=== PATIENT | male | born 1970 | race Hispanic/Latino ===

== ENCOUNTER 2025-05-19 15:00 | Inpatient (IN) | payer BC ==
[~2025-05-19] VITALS: Ht 182.9 cm; Wt 164.2 kg
[2025-05-19 16:21] LABS: IMMATURE GRANULOCYTE ABSOLUTE 0.15 K/uL (0-1); NUCLEATED RED BLOOD CELLS 0.0 % (0.0-0.19); PLATELET COUNT (AUTO) 290 K/uL (130-400); RED BLOOD CELL COUNT(AUTO) 3.43 MIL/uL (4.50-6.20); RED CELL DISTRIBUTION WIDTH 16.1 % (11.0-15.5); WHITE BLOOD COUNT (AUTO) 13.7 K/uL (4.8-10.8)
[2025-05-19 16:32] LABS: INR 0.99 (0.85-1.15)
--- NOTE | 2025-05-19 16:33 | ERN ---
General Chief Complaint: Hematemesis/Vomiting Blood Stated Complaint: VOMITING BLOOD Time Seen by MD: 15:16 Source: patient History of Present Illness Initial Comments This patient is a 54-year-old gentleman who presented with complaint of bloody vomitus. Patient stated that he had 1 episode of vomiting yesterday while he was at work and he noticed it was dark. Today, while sleeping, he started coughing which was followed by bloody vomiting. He only had 1 episode today. He also noticed dark stools since past 2 days. As per patient, he has no significant history of alcohol. Complains of pain in right upper quadrant. Also states that he has been having chronic cough without sputum for the past year. He also has NABIL history. Timing/Duration: 24 hours Associated Symptoms: nausea/vomiting Allergies: Coded Allergies: No Known Drug Allergies (Unverified Allergy, Unknown, 05/19/25) Past Medical History Past Medical History: Hypertension Past Surgical History: Other Surgical History Other: CRANIAL SURGERY Constitutional: (+) weakness Respiratory: (+) cough Gastrointestinal/Abdominal: (+) nausea, (+) vomiting, (+) abdominal pain (Right upper quadrant), (+) dark stool/melena Genitourinary: (-) penile discharge, (-) dysuria, (-) frequency, (-) hematuria, (-) pain, (-) other documentation Musculoskeletal: (-) Neck pain, (-) back pain, (-) Flank Pain, (-) joint pain, (-) joint swelling, (-) muscle pain, (-) muscle stiffness, (-) gout, (-) other documentation Skin: (-) laceration, (-) contusion, (-) abrasion, (-) abscess, (-) rash, (-) change in color, (-) change in hair, (-) change in nails, (-) diaphoresis, (-) dryness, (-) other documentation Neuro: (-) altered mental status, (-) headache, (-) syncope, (-) paralysis, (-) numbness, (-) seizure, (-) pre-existing deficit, (-) tremors, (-) weakness, (-) dizziness, (-) slurred speech, (-) vertigo, (-) other documentation Hematologic/Lymphatic: (-) anemia, (-) blood clots, (-) easy bleeding, (-) easy bruising, (-) swollen glands, (-) other documentation Physical Exam General Appearance: (+) no apparent distress, (+) obese Orientation: (+) alert, (+) oriented x 3 Ear, Nose, Throat: (+) hearing grossly normal, (+) normal ENT inspection, (+) moist mucous membraine Neck: (+) normal inspection, (+) supple Respiratory: (+) chest non-tender, (+) lungs clear Heart: (+) regular Vascular: (+) edema (In lower extremities) Gastrointestinal: (+) soft, (+) distended, (+) tender (In right upper quadrant) Extremities: (+) normal range of motion, (+) non-tender, (+) normal inspection Neurologic/Psychiatric: (+) normal speech, (+) no motor defecits, (+) no sensory deficits Skin: (+) normal color Results Laboratory and Microbiology Lab and Micro Result Laboratory Tests Test 05/19/25 16:05 White Blood Count 13.7 K/uL (4.8-10.8) H Red Blood Count 3.43 MIL/uL (4.50-6.20) L Hemoglobin 10.1 g/dL (14.0-18.0) L Hematocrit 31.7 % (42-54) L Mean Corpuscular Volume 92.4 fL (79-99) Mean Corpuscular Hemoglobin 29.4 pg (27.0-33.0) Mean Corpuscular Hemoglobin Concent 31.9 g/dL (32.0-36.0) L Red Cell Distribution Width 16.1 % (11.0-15.5) H Platelet Count 290 K/uL (130-400) Mean Platelet Volume 9.8 fL (7.5-10.5) Immature Granulocyte % (Auto) 1.1 % (0-1) H Neutrophils (%) (Auto) 68.4 % (40.0-77.0) Lymphocytes (%) (Auto) 18.6 % (21.0-51.0) L Monocytes (%) (Auto) 10.2 % (3.0-13.0) Eosinophils (%) (Auto) 1.1 % (0.0-8.0) Basophils (%) (Auto) 0.6 % (0.0-5.0) Neutrophils # (Auto) 9.4 K/uL (1.8-7.7) H Lymphocytes # (Auto) 2.6 K/uL (1.0-4.8) Monocytes # (Auto) 1.4 K/uL (0.1-1.0) H Eosinophils # (Auto) 0.15 K/uL (0.00-0.70) Basophils # (Auto) 0.08 K/uL (0.00-0.20) Absolute Immature Granulocyte (auto 0.15 K/uL (0-1) Nucleated Red Blood Cells 0.0 % (0.0-0.19) Prothrombin Time 10.5 SEC (9.6-11.6) Prothromb Time International Ratio 0.99 (0.85-1.15) Activated Partial Thromboplast Time 26.2 SEC (26.3-35.5) L Sodium Level 134 mmol/L (136-145) L Potassium Level 3.8 mmol/L (3.5-5.1) Chloride Level 101 mmol/L (101-111) Carbon Dioxide Level 28 mmol/L (21-32) Blood Urea Nitrogen 33 mg/dL (7-18) H Creatinine 0.7 mg/dL (0.5-1.3) Glomerular Filtration Rate Calc 111 mL/min (>90) Random Glucose 101 mg/dL (70-105) Lactic Acid Level 1.1 mmol/L (0.8-2.5) Total Calcium 8.2 mg/dL (8.5-10.1) L Phosphorus Level 3.4 mg/dL (2.5-4.9) Magnesium Level 2.30 mg/dL (1.80-2.40) Total Bilirubin 0.3 mg/dL (0.2-1.0) Direct Bilirubin 0.1 mg/dL (0.0-0.3) Aspartate Amino Transf (AST/SGOT) 13 U/L (10-37) Alanine Aminotransferase (ALT/SGPT) 17 U/L (12-78) Alkaline Phosphatase 66 U/L (50-136) Total Protein 6.8 g/dL (6.0-8.3) Albumin 2.4 g/dL (3.5-5.0) L MDM Differential diagnosis: Variceal bleeding, bleeding gastric ulcer, bleeding duodenal ulcer This patient is a 54-year-old gentleman who presented with complaint of hematemesis and melena for the past 1-2 days. On presentation, patient was vitally with BP 129/68, HR 89 and afebrile. CBC, BMP, LFTs, magnesium, phosphorous were drawn. CBC was remarkable for mild leukocytosis with WBCs 13.7. Renal function test showed elevated BUN. Type and crossmatch of blood was done. Chest x-ray was ordered. Patient was started on normal saline 500 mL bolus, ondansetron, metoclopramide, Protonix and ceftriaxone 1 g. ED Course Orders Procedure Category Date Status Time Cbc With Differential LAB 05/19/25 Complete 15:42 Type And Screen BBK 05/19/25 In Process 15:42 Ondansetron 4mg Inj PHA 05/19/25 Complete (Zofran 4mg Inj) 16:00 Ceftriaxone 1g Vial PHA 05/19/25 Complete (Rocephine 1g Inj) 16:00 Pantoprazole 40mg Inj PHA 05/19/25 Complete (Protonix 40mg Inj 16:00 Pt And Ptt LAB 05/19/25 Complete 15:42 Ct Abdomen/Pelvis CT 05/19/25 Logged W/Contrast 15:42 Chest 1vw RAD 05/19/25 Taken 15:42 Metoclopramide 10 PHA 05/19/25 Complete Mg/2 Ml Vial (Reglan 1 16:00 0.9% Nacl 500ml PHA 05/19/25 In Process Iv.Soln (Ns 500ml 16:00 Magnesium LAB 05/19/25 Complete 15:48 Phosphorus LAB 05/19/25 Complete 15:48 Lactic Acid LAB 05/19/25 Complete 15:48 Ceftriaxone 1g Vial PHA 05/19/25 Complete (Rocephine 1g Inj) 16:00 Basic Metabolic Panel LAB 05/19/25 Complete 16:05 Hepatic Function Panel LAB 05/19/25 Complete 16:05 Ceftriaxone 1g Vial PHA 05/20/25 In Process (Rocephine 1g Inj) 16:30 Metoclopramide 10 PHA 05/19/25 Logged Mg/2 Ml Vial (Reglan 1 17:00 Current Medications Medications (Trade) Dose Ordered Sig/Dieudonne Route PRN Reason Start Time Stop Time Status Last Admin Dose Admin Ceftriaxone Sodium 1 gm/ Sodium Chloride 50 ml @ 100 mls/hr ONCE ONCE IV 05/19/25 16:00 05/19/25 15:58 DC Ceftriaxone Sodium (ROCEphine 1G INJ) 1 gm ONCE ONCE IVPB 05/19/25 16:00 05/19/25 16:01 DC Ceftriaxone Sodium (ROCEphine 1G INJ) 1 gm Q24H IVPB 05/20/25 16:30 05/30/25 16:29 Metoclopramide HCl (regLAN 10MG IV) 5 mg ONCE ONCE IM 05/19/25 16:00 05/19/25 16:01 DC Metoclopramide HCl (regLAN 10MG IV) 5 mg ONCE ONCE IVP 05/19/25 17:00 05/19/25 17:01 UNV Ondansetron HCl (zoFRAN 4MG INJ) 4 mg ONCE ONCE IVP 05/19/25 16:00 05/19/25 16:01 DC Pantoprazole Sodium (PROTonix 40MG INJ) 40 mg ONCE ONCE IVP 05/19/25 16:00 05/19/25 16:01 DC Sodium Chloride 500 ml @ 0 mls/hr Q0M IV 05/19/25 16:00 06/18/25 15:59 Vital Signs Date Time Temp Pulse Resp B/P (MAP) Pulse Ox O2 Delivery O2 Flow Rate FiO2 05/19/25 15:05 98.8 89 16 129/68 99 Room Air DX & DISP Disposition: Inpatient Decision to Admit Date: May 19, 2025 Decision to Admit Time: 16:50 Departure Impression: Primary Impression: Upper GI bleed Additional Impressions: Hematemesis, Melena Condition: Stable Referrals: SULY MATTHEWS MD (PCP) I have examined patient, & reviewed all documents, & agreed W/ the Diagnosis, and Plan ATTESTATION BY PHYSICIAN I have seen and examined the patient. I reviewed the documentation, medical decision making, and treatment plan as noted by the resident provider above. I agree with the findings and plan of care. JAZMINE JUDGE MUHAMMAD H MD May 19, 2025 16:33
[2025-05-19 16:35] LABS: CREATININE 0.7 mg/dL (0.5-1.3); GLOMERULAR FILTR. RATE CALC 111.0 mL/min (>90); GLUCOSE,RANDOM 101.0 mg/dL (70-105); SODIUM SERUM 134.0 mmol/L (136-145); UREA NITROGEN, BLOOD 33.0 mg/dL (7-18)
[2025-05-19 16:39] LABS: ASPARTATE AMINOTRANSFERASE 13.0 U/L (10-37); PHOSPHORUS 3.4 mg/dL (2.5-4.9); TOTAL PROTEIN, SERUM 6.8 g/dL (6.0-8.3)
[2025-05-19] MEDS: 0.9% NACL 500ML IV.SOLN 500 ML IV SCH (17:07)
--- NOTE | 2025-05-19 17:18 | HMCIMG ---
EXAM: CR Chest, 1 View. CLINICAL HISTORY: Hematemesis with a upper GI bleed COMPARISON: None provided. FINDINGS: LUNGS: The lungs show no infiltrate or other acute finding. PLEURAL SPACES: No evidence of pleural effusion or pneumothorax. MEDIASTINUM: The cardiomediastinal silhouette is within normal limits. BONES: No acute osseous abnormality. IMPRESSION: No acute cardiopulmonary pathology is evident. /[place]
[2025-05-19] MEDS ORDERED: TIRZ2.5P SQ (17:53)
[2025-05-19] MEDS ORDERED: ALBUHFA IH (17:53)
[2025-05-19] MEDS ORDERED: PANT40TA54 PO (17:53)
[2025-05-19] MEDS ORDERED: METF-444 PO (17:53)
[2025-05-19] MEDS ORDERED: DAPA10TA PO (17:53)
[2025-05-19] MEDS ORDERED: MONT-39 PO (17:53)
[2025-05-19] MEDS ORDERED: LOSA50TA64 PO (17:53)
[2025-05-19] MEDS ORDERED: HYDR25TA PO (17:53)
--- NOTE | 2025-05-19 17:54 | HP ---
HISTORY AND PHYSICAL Date of Visit: May 19, 2025 Time of Visit: 17:53 ADMISSION DATE: May 19, 2025 at 17:26 CC: VOMITING BLOOD HPI: THIS IS A 54 YR OLD MAN WITH MORBID OBESITY, HTN DM II WHO HAD BEEN DOING WELL UP UNTIL THE PAST 3 DAYS WHEN HE BEGAN TO HAVE SOME INCREASED REFLUX LIKE SYMPTOMS WHICH HE SAYS HE IS PRONE TO AND USES OTC PEPCID FROM TIME TO TIME. HIS LOWER EPIGASTRIC PAIN INTENSIFIED AND DID NOT IMPROVE LIKE IT USUALLY DID WITH HIS OTC H2B. HE THEN STARTED TO HAVE EMESIS YESTERDAY AND HE IS NOT SURE THERE WAS ANY BLOOD IN IT OR NOT AT THAT TIME BUT DID DESCRIBE HIS EMESIS DARK IN COLOR. TODAY HE ALSO CONTINUED WITH SIMILAR SYMPTOMS AND THEN HAD RECURRENT EMESIS TRIGGERED BY A COUGH AND THIS TIME THE EMESIS DID LOOK MAROON IN COLOR WITH BRIGHT RED BLOOD WELL. HE ALSO DESCRIBES DARK TARRY COLORED STOOL IN THE PAST 2 DAYS. HE DENIES ANY FEVERS CHILLS BUT HE DOSE DESCRIBES BILATERAL LOWER ABDOMINAL / PELVIC PAINS INTERMITTENT IN NATURE IN THE PAST 1-2 DAYS WELL. HE DENIES ANY PRIOR HISTORY OF GI BLEEDING. HE DENIES ANY USE OF NSAIDS ALCOHOL OR ABNORMAL WEIGHT LOSS. 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 Allergic rhinitis Chronic kidney disease stage 2 Body mass index 40+ - Severely obese Chronic cough SOCIAL HISTORY: [] FAMILY HISTORY: [] Allergies: Coded Allergies: No Known Drug Allergies (Unverified Allergy, Unknown, 05/19/25) Scheduled Dapagliflozin Propanediol (Farxiga), 1 TAB PO DAILY Dapagliflozin Propanediol (Farxiga), 10 MG PO DAILY, (Reported) Hydrochlorothiazide (Hydrochlorothiazide), 1 TAB PO DAILY Losartan Potassium (Losartan Potassium), 1 TAB PO DAILY, (Reported) Metformin HCl (Metformin HCl), 1 TAB PO DAILY Montelukast Sodium (Montelukast Sodium), 1 TAB PO DAILY Pantoprazole Sodium (Pantoprazole Sodium), 1 TAB PO DAILY Tirzepatide (Mounjaro), 2.5 MG SQ QWEEK Scheduled PRN Albuterol Sulfate (Ventolin Hfa/Proventil Hfa/Proair Hfa), 2 PUFF IH Q4HPRN PRN for wheezing Discontinued Medications Losartan Potassium (Losartan Potassium), 1 TAB PO DAILY Review of Systems Normal Constitutional:, Normal Eyes:, Normal Ear/Nose/Mouth/Throat, Normal Cardiovascular:, Normal Respiratory:, Normal Genitourinary:, Normal Integumentary:, Normal Musculoskeletal:, Normal Neurological:, Normal Psychological:, Normal Endocrine:, Normal Hematologic/Lymphatic:, Normal Allergic/Immunologic:; Abnormal Gastrointestinal: (REFER TO HPI) Physical Exam Vital Signs Vital Signs Date Time Temp Pulse Resp B/P (MAP) Pulse Ox O2 Delivery O2 Flow Rate FiO2 05/19/25 15:05 98.8 89 16 129/68 99 Room Air 05/19/25 17:30 0 21 Appearance: Obese Eyes: PERRL, EOM Normal Ear/Nose/Mouth/Throat: Landmarks WNL, Hearing WNL, TMs WNL, Oropharynx WNL Neck: Symmetric, trach midline, Thyroid WNL Cardiovascular: PMI WNL, Regular Rate, Regular Rhythm Respiratory: No Retractions, No rubs/wheezing, Lungs clear G.I.: Normal bowel sounds, No rebound tenderness Lymphatic: No lymphadenopathy neck, No lymphadenopathy axilla, No lymphadenopathy groin Musculoskeletal: Gait WNL, Strength/Tone WNL Breasts: Symmetrical, no masses, Palpation-no masss/tender Skin: No rash/ulcers, No induration/nodules Neurology: Nerves I-XII intact, Sensation WNL Psychology: Insight WNL, Orientation WNL, Memory WNL, Affect WNL Diagnostics Laboratory Tests Test 05/19/25 16:05 Range/Units White Blood Count 13.7 4.8-10.8 K/uL Red Blood Count 3.43 4.50-6.20 MIL/uL Hemoglobin 10.1 14.0-18.0 g/dL Hematocrit 31.7 42-54 % Mean Corpuscular Volume 92.4 79-99 fL Mean Corpuscular Hemoglobin 29.4 27.0-33.0 pg Mean Corpuscular Hemoglobin Concent 31.9 32.0-36.0 g/dL Red Cell Distribution Width 16.1 11.0-15.5 % Platelet Count 290 130-400 K/uL Mean Platelet Volume 9.8 7.5-10.5 fL Immature Granulocyte % (Auto) 1.1 0-1 % Neutrophils (%) (Auto) 68.4 40.0-77.0 % Lymphocytes (%) (Auto) 18.6 21.0-51.0 % Monocytes (%) (Auto) 10.2 3.0-13.0 % Eosinophils (%) (Auto) 1.1 0.0-8.0 % Basophils (%) (Auto) 0.6 0.0-5.0 % Neutrophils # (Auto) 9.4 1.8-7.7 K/uL Lymphocytes # (Auto) 2.6 1.0-4.8 K/uL Monocytes # (Auto) 1.4 0.1-1.0 K/uL Eosinophils # (Auto) 0.15 0.00-0.70 K/uL Basophils # (Auto) 0.08 0.00-0.20 K/uL Absolute Immature Granulocyte (auto 0.15 0-1 K/uL Nucleated Red Blood Cells 0.0 0.0-0.19 % Prothrombin Time 10.5 9.6-11.6 SEC Prothromb Time International Ratio 0.99 0.85-1.15 Activated Partial Thromboplast Time 26.2 26.3-35.5 SEC Sodium Level 134 136-145 mmol/L Potassium Level 3.8 3.5-5.1 mmol/L Chloride Level 101 101-111 mmol/L Carbon Dioxide Level 28 21-32 mmol/L Blood Urea Nitrogen 33 7-18 mg/dL Creatinine 0.7 0.5-1.3 mg/dL Glomerular Filtration Rate Calc 111 >90 mL/min Random Glucose 101 70-105 mg/dL Lactic Acid Level 1.1 0.8-2.5 mmol/L Total Calcium 8.2 8.5-10.1 mg/dL Phosphorus Level 3.4 2.5-4.9 mg/dL Magnesium Level 2.30 1.80-2.40 mg/dL Total Bilirubin 0.3 0.2-1.0 mg/dL Direct Bilirubin 0.1 0.0-0.3 mg/dL Aspartate Amino Transf (AST/SGOT) 13 10-37 U/L Alanine Aminotransferase (ALT/SGPT) 17 12-78 U/L Alkaline Phosphatase 66 50-136 U/L Total Protein 6.8 6.0-8.3 g/dL Albumin 2.4 3.5-5.0 g/dL Assessment/Plan Assessment/Plan ASSESSMENT: THIS IS A 54 YR OLD MAN WITH HISTORY OF Obstructive sleep apnea syndrome 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 Allergic rhinitis Chronic kidney disease stage 2 Body mass index 40+ - Severely obese Chronic cough HE PRESENTED WITH ACUTE ONSET OF HEMATEMESIS AND TARRY LOOSE STOOLS X 2 DAYS SUSPECTED OF UGI BLEED ALSO BILATERAL LOWER ABDOMINAL PAIN PLAN: SERIAL MONITORING OF H/H HYDRATE WITH IVF KEEP NPO AND HOLD PO MEDS WELL COVER WITH IV PROTONIX 40 MG IV Q 12 HR MONITOR BP AND ADJUST AND TREAT NEEDED MONITOR GLUCOSE AND COVER WITH ADDITIONAL INSULIN PRN SUPPLEMENT ELECTROLYTES NEEDED ANALGESICS AND ANTI EMETICS NEEDED GI CONSULTED TO CONSIDER EGD NEEDED TEDS AND SCD FOR DVT PROPHYLAXIS ANSWERED ALL QUESTIONS FOR PATIENT AND EXTENDED FAMILY AT BEDSIDE SULY MATTHEWS MD May 19, 2025 17:53
[2025-05-19] MEDS ORDERED: LACTULOSE 20 GM/30 ML UDCUP PO PRN (18:00)
[2025-05-19] MEDS ORDERED: ALBUTEROL 0.083% 2.5 MG/3 ML INH IH PRN (18:00)
[2025-05-19] MEDS ORDERED: guaiFENesin-DM 200/20MG 10ML PO PRN (18:00)
[2025-05-19] MEDS ORDERED: DEXTROSE 50%-WATER 50 ML DISP.SYRIN IV PRN (18:30)
[2025-05-19] MEDS ORDERED: PoTASSium chl 10% ELIXIR 20MEQ 20 MEQ/15 ML UDCUP PO PRN (18:30)
[2025-05-19] MEDS ORDERED: GLUCAGON 1MG KIT 1 MG ML IM PRN (18:30)
[2025-05-19] MEDS ORDERED: PoTASSium chloRIDE 20MEQ ER 20 MEQ ERTAB PO PRN (18:30)
[2025-05-19] MEDS ORDERED: IOHEXOL-350 75 ML VIAL IV ONE (18:49)
[2025-05-19] MEDS ORDERED: LOSA25TA41 PO (20:19)
[2025-05-19] MEDS: 0.9%NACL 1000ML 1,000 ML IV SCH (20:35)
--- NOTE | 2025-05-19 20:43 | HMCIMG ---
EXAM: CT Abdomen and Pelvis with IV contrast CLINICAL HISTORY: Patient presents with hematemesis and suspected upper gastrointestinal bleed. TECHNIQUE: Axial computed tomography images of the abdomen and pelvis with intravenous contrast. CONTRAST: Administered intravenously. COMPARISON: None provided. FINDINGS: LUNG BASES: The lung bases are clear. No pleural effusion. LIVER: The liver is enlarged, measuring 19 cm in craniocaudal span. No focal lesion. Mild fatty liver. GALLBLADDER AND BILE DUCTS: The gallbladder is within normal limits. No radio-opaque gallstones. No biliary ductal dilatation. PANCREAS: Unremarkable. SPLEEN: Unremarkable. ADRENAL GLANDS: Unremarkable. KIDNEYS, URETERS, AND BLADDER: Two right renal cysts, largest measuring 1.1 x 1.1 x 1.1 cm in the interpolar region. A left renal cyst in the interpolar region measuring 2.8 x 2.3 x 2.2 cm. No hydronephrosis or urinary calculi. The urinary bladder is incompletely distended, limiting wall assessment. Mild cystitis cannot be excluded in the appropriate clinical context. STOMACH AND BOWEL: Mild constipation. No obstruction or colitis. APPENDIX: No evidence of acute appendicitis. PERITONEUM: No free fluid. No free air. LYMPH NODES: No lymphadenopathy. REPRODUCTIVE: Unremarkable as visualized. VASCULATURE: No evidence of abdominal aortic aneurysm. BONES: Multilevel mild degenerative changes in the spine. No acute osseous abnormality. IMPRESSION: No acute process in the abdomen or pelvis. No obvious bowel wall thickening, inflammation, or cause of GI bleeding is evident at this time. Hepatomegaly with liver span measuring 19 cm. Bilateral renal cysts, largest measuring 2.8 cm in the interpolar region of the left kidney. Mild constipation. Incompletely distended urinary bladder, limiting wall evaluation. Mild cystitis cannot be excluded. /[place]
--- NOTE | 2025-05-19 21:28 | NUR ---
report given to nurse ribeiro
[2025-05-19 21:40] VITALS: BP 107/65; PULSE 79; RESP 20; TEMP 98.4; O2SAT 95
--- NOTE | 2025-05-19 21:40 | NUR ---
ADMISSION: PT RECEIVED FROM ER VIA STRETCHER, AT BEDSIDE. PT STATES FOR THE PAST TWO DAYS HE HAS BEEN HAVING EMESIS WITH BLOOD AND DARK TARRY STOOLS. PT INSTRUCTED NOT TO EAT OR DRINK ANYTHING FOR NOW UNTIL GI CONSULT OR PRIMARY ORDER OTHERWISE. IV INFUSING NS AT 100 ML/HR TO RIGHT AC, NO REDNESS, NO SWELLING , NO TENDERNESS NOTED. ORIENTED TO ROOM, SURROUNDINGS AND CALL LIGHT.
[2025-05-20] VITALS (7 sets, daily range): BP systolic 103–116; BP diastolic 53–63; PULSE 70–77; RESP 18–20; TEMP 97.7–98.6; O2SAT 90–94
[2025-05-20] MEDS ORDERED: DAPA10TA PO (03:27)
[2025-05-20 05:22] LABS: CREATININE 0.7 mg/dL (0.5-1.3); GLOMERULAR FILTR. RATE CALC 111.0 mL/min (>90); GLUCOSE,RANDOM 106.0 mg/dL (70-105); SODIUM SERUM 138.0 mmol/L (136-145); UREA NITROGEN, BLOOD 25.0 mg/dL (7-18)
--- NOTE | 2025-05-20 08:43 | PN ---
Subjective Review of Systems PROGRESS NOTE Date of Visit: May 20, 2025 Time of Visit: 08:36 Events since last encounter patient resting in bed Subjective did better overnight w/o recurrent hematemesis General: No Fever, No Chills, No Night Sweats, No Fatigue, No Malaise, No Appetite, No Other HEENT: No Head Aches, No Visual Changes, No Eye Pain, No Ear Pain, No Dysphasia, No Sinus Congestion, No Post Nasal Drip, No Sore Throat, No Other Pulmonary: No Dyspnea, No Cough, No Pleuritic Chest Pain, No Other Cardiovascular: No: Chest Pain, Palpitations, Orthopnea, Paroxysmal Noc. Dyspnea, Edema, Lt Headedness, Other Gastrointestinal: No: Nausea, Vomiting, Abdominal Pain, Diarrhea, Constipation, Melena, Hematochezia, Other Genitourinary: No Dysuria, No Frequency, No Incontinence, No Hematuria, No Retention, No Other Musculoskeletal: No: other, neck pain, shoulder pain, arm pain, back pain, hand pain, leg pain, foot pain Skin: No Urticaria, No Rash, No Other Neurological: No: Weakness, Numbness, Incoordination, Change in speech, Confusion, Seizures, Other Objective Vitals and I/O Vital Sign (Last 24 Hours) 05/19/25 05/20/25 05/20/25 21:40 03:41 08:00 Temp 97.7 Pulse 70 Resp 20 B/P (MAP) 116/55 Pulse Ox 99 O2 Delivery Room Air O2 Flow Rate 0 FiO2 21 Intake & Output (last 24hrs) 05/19/25 05/19/25 05/20/25 15:00 23:00 07:00 Intake Total 700.0 ml Output Total 450 ml Balance -450 ml 700.0 ml General: Alert, Oriented X3, Cooperative, No acute distress HEENT: Atraumatic, PERRLA, EOMI, Mucous membr. moist/pink Neck: Supple, No JVD, No thyromegaly Lungs: Clear to auscultation Heart: Regular rate, Regular rhythm, Normal S1 Abdomen: Normal bowel sounds, Soft, No tenderness, No masses, Other (morbidly obese) Extremities: No clubbing, No cyanosis, No edema Skin: No rashes, No breakdown Neuro: Normal gait, Normal speech, Strength at 5/5 X4 ext, Normal tone Psych/Mental Status: Mental status NL, Mood NL, Thoughts/Content NL Results RADIOLOGY: [] EKG: [] Laboratory Tests Test 05/19/25 16:05 05/19/25 18:52 05/19/25 20:08 05/20/25 04:38 White Blood Count 13.7 K/uL (4.8-10.8) H Red Blood Count 3.43 MIL/uL (4.50-6.20) L Hemoglobin 10.1 g/dL (14.0-18.0) L 9.9 g/dL (14.0-18.0) L Hematocrit 31.7 % (42-54) L 30.9 % (42-54) L Mean Corpuscular Volume 92.4 fL (79-99) Mean Corpuscular Hemoglobin 29.4 pg (27.0-33.0) Mean Corpuscular Hemoglobin Concent 31.9 g/dL (32.0-36.0) L Red Cell Distribution Width 16.1 % (11.0-15.5) H Platelet Count 290 K/uL (130-400) Mean Platelet Volume 9.8 fL (7.5-10.5) Immature Granulocyte % (Auto) 1.1 % (0-1) H Neutrophils (%) (Auto) 68.4 % (40.0-77.0) Lymphocytes (%) (Auto) 18.6 % (21.0-51.0) L Monocytes (%) (Auto) 10.2 % (3.0-13.0) Eosinophils (%) (Auto) 1.1 % (0.0-8.0) Basophils (%) (Auto) 0.6 % (0.0-5.0) Neutrophils # (Auto) 9.4 K/uL (1.8-7.7) H Lymphocytes # (Auto) 2.6 K/uL (1.0-4.8) Monocytes # (Auto) 1.4 K/uL (0.1-1.0) H Eosinophils # (Auto) 0.15 K/uL (0.00-0.70) Basophils # (Auto) 0.08 K/uL (0.00-0.20) Absolute Immature Granulocyte (auto 0.15 K/uL (0-1) Nucleated Red Blood Cells 0.0 % (0.0-0.19) Prothrombin Time 10.5 SEC (9.6-11.6) Prothromb Time International Ratio 0.99 (0.85-1.15) Activated Partial Thromboplast Time 26.2 SEC (26.3-35.5) L Sodium Level 134 mmol/L (136-145) L 138 mmol/L (136-145) Potassium Level 3.8 mmol/L (3.5-5.1) 3.8 mmol/L (3.5-5.1) Chloride Level 101 mmol/L (101-111) 105 mmol/L (101-111) Carbon Dioxide Level 28 mmol/L (21-32) 31 mmol/L (21-32) Blood Urea Nitrogen 33 mg/dL (7-18) H 25 mg/dL (7-18) H Creatinine 0.7 mg/dL (0.5-1.3) 0.7 mg/dL (0.5-1.3) Glomerular Filtration Rate Calc 111 mL/min (>90) 111 mL/min (>90) Random Glucose 101 mg/dL (70-105) 106 mg/dL (70-105) H Lactic Acid Level 1.1 mmol/L (0.8-2.5) Total Calcium 8.2 mg/dL (8.5-10.1) L 7.9 mg/dL (8.5-10.1) L Phosphorus Level 3.4 mg/dL (2.5-4.9) Magnesium Level 2.30 mg/dL (1.80-2.40) Total Bilirubin 0.3 mg/dL (0.2-1.0) Direct Bilirubin 0.1 mg/dL (0.0-0.3) Aspartate Amino Transf (AST/SGOT) 13 U/L (10-37) Alanine Aminotransferase (ALT/SGPT) 17 U/L (12-78) Alkaline Phosphatase 66 U/L (50-136) Total Protein 6.8 g/dL (6.0-8.3) Albumin 2.4 g/dL (3.5-5.0) L Whole Blood Glucose 87 MG/DL (70-110) Test 05/20/25 06:09 Whole Blood Glucose 107 MG/DL (70-110) Medications Current Medications Ondansetron HCl 4 mg ONCE ONCE IVP Last administered on 05/19/25at 16:58; Start 05/19/25 at 16:00; Stop 05/19/25 at 16:01; Status DC Ceftriaxone Sodium 1 gm/ Sodium Chloride 50 ml @ 100 mls/hr ONCE ONCE IV; Start 05/19/25 at 16:00; Stop 05/19/25 at 15:58; Status DC Pantoprazole Sodium 40 mg ONCE ONCE IVP Last administered on 05/19/25at 16:58; Start 05/19/25 at 16:00; Stop 05/19/25 at 16:01; Status DC Metoclopramide HCl 5 mg ONCE ONCE IM; Start 05/19/25 at 16:00; Stop 05/19/25 at 16:52; Status DC Sodium Chloride 500 ml @ 0 mls/hr Q0M IV Last administered on 05/19/25at 17:07; Start 05/19/25 at 16:00; Stop 06/18/25 at 15:59 Ceftriaxone Sodium 1 gm ONCE ONCE IVPB Last administered on 05/19/25at 17:07; Start 05/19/25 at 16:00; Stop 05/19/25 at 16:01; Status DC Ceftriaxone Sodium 1 gm Q24H IVPB; Start 05/20/25 at 16:30; Stop 05/30/25 at 16:29 Metoclopramide HCl 5 mg ONCE ONCE IVP Last administered on 05/19/25at 16:58; Start 05/19/25 at 17:00; Stop 05/19/25 at 17:01; Status DC Pantoprazole Sodium 40 mg BID IVP Last administered on 05/19/25at 20:35; Start 05/19/25 at 21:00; Stop 06/18/25 at 20:59 Sodium Chloride 1,000 ml @ 100 mls/hr Q10H IV Last administered on 05/19/25at 20:35; Start 05/19/25 at 18:30; Stop 06/18/25 at 18:29 Albuterol Sulfate 2.5 mg Q4HPRN PRN IH; Start 05/19/25 at 18:00; Stop 06/18/25 at 17:59 Diphenhydramine HCl 25 mg Q4H PRN PO; Start 05/19/25 at 18:00; Stop 06/18/25 at 17:59 Diphenhydramine HCl 25 mg Q6H PRN IV; Start 05/19/25 at 18:00; Stop 06/18/25 at 17:59 Acetaminophen 650 mg Q6H PRN PO; Start 05/19/25 at 18:00; Stop 06/18/25 at 17:59 Acetaminophen 650 mg Q4H PRN PO; Start 05/19/25 at 18:00; Stop 06/18/25 at 17:59 Ondansetron HCl 4 mg Q6H PRN IV; Start 05/19/25 at 18:00; Stop 06/18/25 at 17:59 Al Hydroxide/Mg Hydroxide 30 ml Q6H PRN PO; Start 05/19/25 at 18:00; Stop 06/18/25 at 17:59 Lactulose 20 gm BID PRN PO; Start 05/19/25 at 18:00; Stop 06/18/25 at 17:59 Guaifenesin/ Dextromethorphan 10 ml Q4H PRN PO; Start 05/19/25 at 18:00; Stop 06/18/25 at 17:59 Hydralazine HCl 10 mg Q4H4 PRN IV; Start 05/19/25 at 18:00; Stop 06/18/25 at 17:59 Insulin Human Regular INSULIN SLIDING SCAL... ACHS SQ; Start 05/19/25 at 21:00; Stop 06/18/25 at 20:59 Dextrose 50 ml AD PRN IV; Start 05/19/25 at 18:30; Stop 06/18/25 at 18:29 Glucagon 1 mg AD PRN IM; Start 05/19/25 at 18:30; Stop 06/18/25 at 18:29 Potassium Chloride 100 ml @ 100 mls/hr AD PRN IV; Start 05/19/25 at 18:30; Stop 06/18/25 at 18:29 Potassium Chloride 20 meq AD PRN PO; Start 05/19/25 at 18:30; Stop 06/18/25 at 18:29 Potassium Chloride 20 meq AD PRN PO; Start 05/19/25 at 18:30; Stop 06/18/25 at 18:29 Potassium Chloride 100 ml @ 50 mls/hr AD PRN IV; Start 05/19/25 at 18:30; Stop 06/18/25 at 18:29 Metoclopramide HCl 5 mg Q6H6 IVP Last administered on 05/20/25at 06:07; Start 05/20/25 at 00:00; Stop 06/19/25 at 00:00 Iohexol 75 ml STK-MED ONCE IV; Start 05/19/25 at 18:49; Stop 05/19/25 at 18:49; Status DC Assessment/Plan RADIOLOGY CR Chest, 1 View The lungs show no infiltrate or other acute finding. PLEURAL SPACES: No evidence of pleural effusion or pneumothorax. MEDIASTINUM: The cardiomediastinal silhouette is within normal limits. BONES: No acute osseous abnormality. IMPRESSION: No acute cardiopulmonary pathology is evident. ABD PEL W - CT ABDOMEN/PELVIS W/CONTRAST FINDINGS: LUNG BASES: The lung bases are clear. No pleural effusion. LIVER: The liver is enlarged, measuring 19 cm in craniocaudal span. No focal lesion. Mild fatty liver. GALLBLADDER AND BILE DUCTS: The gallbladder is within normal limits. No radio-opaque gallstones. No biliary ductal dilatation. PANCREAS: Unremarkable. SPLEEN: Unremarkable. ADRENAL GLANDS: Unremarkable. KIDNEYS, URETERS, AND BLADDER: Two right renal cysts, largest measuring 1.1 x 1.1 x 1.1 cm in the interpolar region. A left renal cyst in the interpolar region measuring 2.8 x 2.3 x 2.2 cm. No hydronephrosis or urinary calculi. The urinary bladder is incompletely distended, limiting wall assessment. Mild cystitis cannot be excluded in the appropriate clinical context. STOMACH AND BOWEL: Mild constipation. No obstruction or colitis. APPENDIX: No evidence of acute appendicitis. PERITONEUM: No free fluid. No free air. LYMPH NODES: No lymphadenopathy. REPRODUCTIVE: Unremarkable as visualized. VASCULATURE: No evidence of abdominal aortic aneurysm. BONES: Multilevel mild degenerative changes in the spine. No acute osseous abnormality. IMPRESSION: No acute process in the abdomen or pelvis. No obvious bowel wall thickening, inflammation, or cause of GI bleeding is evident at this time. Hepatomegaly with liver span measuring 19 cm. Bilateral renal cysts, largest measuring 2.8 cm in the interpolar region of the left kidney. Mild constipation. Incompletely distended urinary bladder, limiting wall evaluation. Mild cystitis cannot be excluded. ASSESSMENT: THIS IS A 54 YR OLD MAN WITH HISTORY OF Obstructive sleep apnea syndrome 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 Allergic rhinitis Chronic kidney disease stage 2 Body mass index 40+ - Severely obese Chronic cough HE PRESENTED WITH ACUTE ONSET OF HEMATEMESIS AND TARRY LOOSE STOOLS X 2 DAYS UGI BLEED WITH ASSOCIATED ANEMIA BILATERAL LOWER ABDOMINAL PAIN WITH POSSIBLE CYSTITIS PLAN: FOLLOW UP CT BENIGN EXCEPT FOR POSSIBLE MILD CYSTITIS REMAINS ON ROCEPHIN SERIAL MONITORING OF H/H HAS BEEN STABLE TRANSFUSE IF NEEDED BUT NO NEED THUS FAR HYDRATE WITH IVF KEEP NPO AND HOLD PO MEDS WELL COVER WITH IV PROTONIX 40 MG IV Q 12 HR MONITOR BP AND ADJUST AND TREAT NEEDED MONITOR GLUCOSE AND COVER WITH ADDITIONAL INSULIN PRN SUPPLEMENT ELECTROLYTES NEEDED ANALGESICS AND ANTI EMETICS NEEDED GI CONSULTED TO CONSIDER EGD NEEDED CONT CPAP QHS TEDS AND SCD FOR DVT PROPHYLAXIS ANSWERED ALL QUESTIONS FOR PATIENT AND EXTENDED FAMILY AT BEDSIDE SULY MATTHEWS MD May 20, 2025 08:43
--- NOTE | 2025-05-20 09:24 | NUR ---
DCP:HOME Pt currently lives with Renetta Jones [phone] and in laws. Pt does not have any DME, home health, or provider services. Pt states that he is able to complete ADLs independently. PCP is Dr. Angi Dee and uses [facility] for any RX needs. At [place] pt will want to go home and family can assist with transportation. Addendum: 05/20/25 at 928 by ARIANA HA SS Amended: Links added.
[2025-05-20 09:41] LABS: NUCLEATED RED BLOOD CELLS 0.0 % (0.0-0.19); PLATELET COUNT (AUTO) 269.0 K/uL (130-400); RED BLOOD CELL COUNT(AUTO) 3.11 MIL/uL (4.50-6.20); RED CELL DISTRIBUTION WIDTH 16.5 % (11.0-15.5); WHITE BLOOD COUNT (AUTO) 11.9 K/uL (4.8-10.8)
--- NOTE | 2025-05-20 16:33 | CONS ---
GASTROENTEROLOGY CONSULTATION NOTE Date of Consultation: May 20, 2025 Time of Consultation: 16:31 History of Present Illness: [ 54 yo male patient with past medical history for hypertension, NABIL, who presented to emergency room with complaints of hematemesis. Patient reported he began having nausea 2 days ago and then had several bouts of hematemesis. He also reports having dark tarry stools. WBC 11.9, HGB 9.2, platelets 269. Lactic Acid 1.1, Total bilirubin 0.3, direct bilirubin 0.1, AST 13, ALT 17. Alk phos 66. Total protein 6.8 and albumin 2.4. Chest XR negative. CT of abdomen and pelvis w/o contrast showing hepatomegaly. His BBS are clear. Abdomen is soft and not distended. Active BS present. he reports last bm today. POC discussed and recommendations for EGD given. ] Review of Systems: CONSTITUTIONAL: No malaise or change in sensation of wellbeing. ENMT: No rhinorrhea, otorrhea, sinus pain, ear ache. CARDIOVASCULAR: No angina, palpitations, orthopnea or paroxysmal dyspnea. RESPIRATORY: No SOB. GASTROINTESTINAL: No abdominal pain, nausea, vomiting, diarrhea, hematemesis, melena or change in the patient's habitual bowel movements consistency/number. GENITOURINARY: No dysuria, hematuria or change in bladder continence. MUSCULOSKELETAL: No new muscle pain or decrease in muscular strength. No new joint swelling, redness or tenderness. SKIN: No new rash. Past Medical History: [Obstructive sleep apnea syndrome Polyneuropathy Chronic kidney disease due to hypertension Allergic rhinitis Chronic kidney disease stage 2 Body mass index 40+ - Severely obese Chronic cough] Past Surgical History: [ ] Past Social History: [ ] Family History: [ ] Coded Allergies: No Known Drug Allergies (Unverified Allergy, Unknown, 05/19/25) Physical Exam: GEN: Awake, alert, oriented in person, time and place, and in no acute distress.Morbidly obese HEENT: Oral pharyngeal mucosa is moist and within normal limits. CHEST:. Lung auscultation revealed normal breath sounds bilaterally. CARDIAC: PMI is within normal limits. Heart sounds are regular. ABD: Soft, non-tender and not distended. No peritoneal signs on palpation. Normal bowel sounds. EXT: No cyanosis or clubbing. No edema. SKIN: Intact. No rashes. JOINTS: No evidence of synovitis or acute arthritis. NEURO: Alert and oriented to name, place and person. No focal motor deficits. Normal speech. Strength is normal. Vital Sign (Last 24 Hours) 05/20/25 05/20/25 08:06 16:00 Temp 97.7 Pulse 74 Resp 20 B/P (MAP) 111/61 Pulse Ox 97 O2 Delivery Room Air O2 Flow Rate 0 FiO2 21 Intake & Output (last 24hrs) 05/19/25 05/19/25 05/20/25 15:00 23:00 07:00 Intake Total 700.0 ml Output Total 450 ml Balance -450 ml 700.0 ml Laboratory: [ ] Laboratory: Test 05/20/25 15:02 05/20/25 09:30 05/20/25 04:38 05/19/25 16:05 Range/Units Whole Blood Glucose 79 70-110 MG/DL White Blood Count 11.9 H 4.8-10.8 K/uL Red Blood Count 3.11 L 4.50-6.20 MIL/uL Hemoglobin 9.2 L 14.0-18.0 g/dL Hematocrit 28.9 L 42-54 % Mean Corpuscular Volume 92.9 79-99 fL Mean Corpuscular Hemoglobin 29.6 27.0-33.0 pg Mean Corpuscular Hemoglobin Concent 31.8 L 32.0-36.0 g/dL Red Cell Distribution Width 16.5 H 11.0-15.5 % Platelet Count 269 130-400 K/uL Mean Platelet Volume 10.0 7.5-10.5 fL Nucleated Red Blood Cells 0.0 0.0-0.19 % Sodium Level 138 136-145 mmol/L Potassium Level 3.8 3.5-5.1 mmol/L Chloride Level 105 101-111 mmol/L Carbon Dioxide Level 31 21-32 mmol/L Blood Urea Nitrogen 25 H 7-18 mg/dL Creatinine 0.7 0.5-1.3 mg/dL Glomerular Filtration Rate Calc 111 >90 mL/min Random Glucose 106 H 70-105 mg/dL Total Calcium 7.9 L 8.5-10.1 mg/dL Immature Granulocyte % (Auto) 1.1 H 0-1 % Neutrophils (%) (Auto) 68.4 40.0-77.0 % Lymphocytes (%) (Auto) 18.6 L 21.0-51.0 % Monocytes (%) (Auto) 10.2 3.0-13.0 % Eosinophils (%) (Auto) 1.1 0.0-8.0 % Basophils (%) (Auto) 0.6 0.0-5.0 % Neutrophils # (Auto) 9.4 H 1.8-7.7 K/uL Lymphocytes # (Auto) 2.6 1.0-4.8 K/uL Monocytes # (Auto) 1.4 H 0.1-1.0 K/uL Eosinophils # (Auto) 0.15 0.00-0.70 K/uL Basophils # (Auto) 0.08 0.00-0.20 K/uL Absolute Immature Granulocyte (auto 0.15 0-1 K/uL Prothrombin Time 10.5 9.6-11.6 SEC Prothromb Time International Ratio 0.99 0.85-1.15 Activated Partial Thromboplast Time 26.2 L 26.3-35.5 SEC Lactic Acid Level 1.1 0.8-2.5 mmol/L Phosphorus Level 3.4 2.5-4.9 mg/dL Magnesium Level 2.30 1.80-2.40 mg/dL Total Bilirubin 0.3 0.2-1.0 mg/dL Direct Bilirubin 0.1 0.0-0.3 mg/dL Aspartate Amino Transf (AST/SGOT) 13 10-37 U/L Alanine Aminotransferase (ALT/SGPT) 17 12-78 U/L Alkaline Phosphatase 66 50-136 U/L Total Protein 6.8 6.0-8.3 g/dL Albumin 2.4 L 3.5-5.0 g/dL Current Medications Medications (Trade) Dose Ordered Sig/Dieudonne Route PRN Reason Start Time Stop Time Status Last Admin Dose Admin Acetaminophen (TYLenol 325MG TAB) 650 mg Q4H PRN PO MILD PAIN (1-3) 05/19/25 18:00 06/18/25 17:59 Acetaminophen (TYLenol 325MG TAB) 650 mg Q6H PRN PO TEMPERATURE GREATER THAN 101.5 05/19/25 18:00 06/18/25 17:59 Al Hydroxide/Mg Hydroxide (MAALox PLUS 30ML) 30 ml Q6H PRN PO INDIGESTION 05/19/25 18:00 06/18/25 17:59 Albuterol Sulfate (Proventil 0.083% 2.5mg/3ml) 2.5 mg Q4HPRN PRN IH wheezing 05/19/25 18:00 06/18/25 17:59 Ceftriaxone Sodium (ROCEphine 1G INJ) 1 gm Q24H IVPB 05/20/25 16:30 05/30/25 16:29 05/20/25 16:10 1 GM Dextrose (D50w) 50 ml AD PRN IV HYPOGLYCEMIA PROTOCOL 05/19/25 18:30 06/18/25 18:29 Diphenhydramine HCl (BENAdryl CAP) 25 mg Q4H PRN PO MILD ITCHING/RASH 05/19/25 18:00 06/18/25 17:59 Diphenhydramine HCl (BENAdryl INJ) 25 mg Q6H PRN IV SEVERE ITCHING/RASH 05/19/25 18:00 06/18/25 17:59 Glucagon (Glucagon 1mg Kit) 1 mg AD PRN IM HYPOGLYCEMIA PROTOCOL 05/19/25 18:30 06/18/25 18:29 Guaifenesin/ Dextromethorphan (RobiTUSSin DM 200/20MG 10ML) 10 ml Q4H PRN PO COUGH 05/19/25 18:00 06/18/25 17:59 Hydralazine HCl (APRESOLine 20MG INJ) 10 mg Q4H4 PRN IV For:SBP above 170;DBP above 90 05/19/25 18:00 06/18/25 17:59 Insulin Human Regular (humuLIN R 100 UNIT/ML 3ML) INSULIN SLIDING SCAL... ACHS SQ 05/19/25 21:00 06/18/25 20:59 Lactulose (Constulose 20gm/ 30ml Udcup) 20 gm BID PRN PO CONSTIPATION 05/19/25 18:00 06/18/25 17:59 Metoclopramide HCl (regLAN 10MG IV) 5 mg Q6H6 IVP 05/20/25 00:00 06/19/25 00:00 05/20/25 12:52 5 MG Ondansetron HCl (zoFRAN 4MG INJ) 4 mg Q6H PRN IV NAUSEA/VOMITING 05/19/25 18:00 06/18/25 17:59 Pantoprazole Sodium (PROTonix 40MG INJ) 40 mg BID IVP 05/19/25 21:00 06/18/25 20:59 05/20/25 10:27 40 MG Potassium Chloride 100 ml @ 50 mls/hr AD PRN IV POTASSIUM PROTOCOL 05/19/25 18:30 06/18/25 18:29 Potassium Chloride 100 ml @ 100 mls/hr AD PRN IV POTASSIUM PROTOCOL 05/19/25 18:30 06/18/25 18:29 Potassium Chloride (K-Dur/Klor-Con 20meq) 20 meq AD PRN PO POTASSIUM PROTOCOL 05/19/25 18:30 06/18/25 18:29 Potassium Chloride (KCl 10% Elixir 20meq/15ml) 20 meq AD PRN PO POTASSIUM PROTOCOL 05/19/25 18:30 06/18/25 18:29 Sodium Chloride 500 ml @ 0 mls/hr Q0M IV 05/19/25 16:00 06/18/25 15:59 05/19/25 17:07 500 MLS/HR Sodium Chloride 1,000 ml @ 100 mls/hr Q10H IV 05/19/25 18:30 06/18/25 18:29 05/20/25 15:28 100 MLS/HR Diagnostics / Radiology: [COPY/PASTE HERE IF NO REPORTS PLEASE DELETE SECTION] Assessment: [Hematemesis Concern for GI Bleed ] Plan: Case discussed with Dr. Velez [ NPO Plan for EGD in am Continue with protonix 40mg IV Trend hemoglobin and transfuse as needed to goal HGB >7 Please call with questions, concerns, and change in clincal status and any overt GI bleed. Thank you for allowing us to be part of this patient's care. ] ELICIA HANCOCK CAREER DEVELOPMENT COORDINATOR/TEACHER May 20, 2025 16:33
--- NOTE | 2025-05-20 23:00 | NUR ---
NPO: PT INSTRUCTED NOT TO EAT/DRINK ANYTHING AFTER MIDNIGHT FOR EGD PROCEDURE IN AM. PT/FAMILY VERBALIZE UNDERSTANDING. ENCOURAGED TO USE CALL LIGHT FOR ASSISTANCE, CALL DAMON WITHIN REACH.
[2025-05-20] MEDS: MAG/ALUM/SIMETH 30 ML UDCUP PO PRN (23:33)
[2025-05-21] VITALS (11 sets, daily range): BP systolic 101–130; BP diastolic 43–75; PULSE 67–98; RESP 14–20; TEMP 97.6–98.4
[2025-05-21 04:25] LABS: NUCLEATED RED BLOOD CELLS 0.2 % (0.0-0.19); PLATELET COUNT (AUTO) 254.0 K/uL (130-400); RED BLOOD CELL COUNT(AUTO) 2.97 MIL/uL (4.50-6.20); RED CELL DISTRIBUTION WIDTH 16.6 % (11.0-15.5); WHITE BLOOD COUNT (AUTO) 13.5 K/uL (4.8-10.8)
[2025-05-21] MEDS ORDERED: LIDOCAINE HCL 1% 20 ML VIAL ONE (09:25)
--- NOTE | 2025-05-21 11:54 | PN ---
GASTROENTEROLOGY PROGRESS NOTE Date of Visit: May 21, 2025 Time of Visit: 11:53 Events / Notes: [ Patient underwent EGD and was found to have small superficial distal esophageal ulcer, gastritis and duodenitis. Biopsies taken. ] Review of Systems: CONSTITUTIONAL: No malaise or change in sensation of wellbeing. ENMT: No rhinorrhea, otorrhea, sinus pain, ear ache. CARDIOVASCULAR: No angina, palpitations, orthopnea or paroxysmal dyspnea. RESPIRATORY: No SOB. GASTROINTESTINAL: No abdominal pain, nausea, vomiting, diarrhea, hematemesis, melena or change in the patient's habitual bowel movements consistency/number. GENITOURINARY: No dysuria, hematuria or change in bladder continence. MUSCULOSKELETAL: No new muscle pain or decrease in muscular strength. No new joint swelling, redness or tenderness. SKIN: No new rash. Physical Exam: GEN: Awake, alert, oriented in person, time and place, and in no acute distress.Morbidly obese HEENT: Oral pharyngeal mucosa is moist and within normal limits. CHEST:. Lung auscultation revealed normal breath sounds bilaterally. CARDIAC: PMI is within normal limits. Heart sounds are regular. ABD: Soft, non-tender and not distended. No peritoneal signs on palpation. Normal bowel sounds. EXT: No cyanosis or clubbing. No edema. SKIN: Intact. No rashes. JOINTS: No evidence of synovitis or acute arthritis. NEURO: Alert and oriented to name, place and person. No focal motor deficits. Normal speech. Strength is normal. Vital Signs (last 8hr) Date Time Temp Pulse Resp B/P (MAP) Pulse Ox O2 Delivery O2 Flow Rate FiO2 05/21/25 10:10 97.9 73 17 103/54 95 Room Air 05/21/25 10:05 72 16 103/54 95 Room Air 05/21/25 10:00 71 15 107/53 96 Room Air 05/21/25 09:55 71 14 108/59 98 Room Air 05/21/25 09:50 67 15 110/56 99 Room Air 05/21/25 09:45 68 14 110/58 100 Nasal Cannula 3.0 05/21/25 09:40 97.9 75 16 106/54 100 Nasal Cannula 3.0 05/21/25 08:00 97.9 72 20 113/43 99 Room Air 05/21/25 04:00 97.5 98 20 101/63 100 Room Air Laboratory: [ ] Laboratory: Test 05/21/25 11:36 05/21/25 04:00 05/20/25 04:38 05/19/25 16:05 Range/Units Whole Blood Glucose 97 70-110 MG/DL Bedside Glucose Comment Notified Nurse White Blood Count 13.5 H 4.8-10.8 K/uL Red Blood Count 2.97 L 4.50-6.20 MIL/uL Hemoglobin 8.8 L 14.0-18.0 g/dL Hematocrit 27.5 L 42-54 % Mean Corpuscular Volume 92.6 79-99 fL Mean Corpuscular Hemoglobin 29.6 27.0-33.0 pg Mean Corpuscular Hemoglobin Concent 32.0 32.0-36.0 g/dL Red Cell Distribution Width 16.6 H 11.0-15.5 % Platelet Count 254 130-400 K/uL Mean Platelet Volume 10.0 7.5-10.5 fL Nucleated Red Blood Cells 0.2 H 0.0-0.19 % Sodium Level 138 136-145 mmol/L Potassium Level 3.8 3.5-5.1 mmol/L Chloride Level 105 101-111 mmol/L Carbon Dioxide Level 31 21-32 mmol/L Blood Urea Nitrogen 25 H 7-18 mg/dL Creatinine 0.7 0.5-1.3 mg/dL Glomerular Filtration Rate Calc 111 >90 mL/min Random Glucose 106 H 70-105 mg/dL Total Calcium 7.9 L 8.5-10.1 mg/dL Immature Granulocyte % (Auto) 1.1 H 0-1 % Neutrophils (%) (Auto) 68.4 40.0-77.0 % Lymphocytes (%) (Auto) 18.6 L 21.0-51.0 % Monocytes (%) (Auto) 10.2 3.0-13.0 % Eosinophils (%) (Auto) 1.1 0.0-8.0 % Basophils (%) (Auto) 0.6 0.0-5.0 % Neutrophils # (Auto) 9.4 H 1.8-7.7 K/uL Lymphocytes # (Auto) 2.6 1.0-4.8 K/uL Monocytes # (Auto) 1.4 H 0.1-1.0 K/uL Eosinophils # (Auto) 0.15 0.00-0.70 K/uL Basophils # (Auto) 0.08 0.00-0.20 K/uL Absolute Immature Granulocyte (auto 0.15 0-1 K/uL Prothrombin Time 10.5 9.6-11.6 SEC Prothromb Time International Ratio 0.99 0.85-1.15 Activated Partial Thromboplast Time 26.2 L 26.3-35.5 SEC Lactic Acid Level 1.1 0.8-2.5 mmol/L Phosphorus Level 3.4 2.5-4.9 mg/dL Magnesium Level 2.30 1.80-2.40 mg/dL Total Bilirubin 0.3 0.2-1.0 mg/dL Direct Bilirubin 0.1 0.0-0.3 mg/dL Aspartate Amino Transf (AST/SGOT) 13 10-37 U/L Alanine Aminotransferase (ALT/SGPT) 17 12-78 U/L Alkaline Phosphatase 66 50-136 U/L Total Protein 6.8 6.0-8.3 g/dL Albumin 2.4 L 3.5-5.0 g/dL Current Medications Medications (Trade) Dose Ordered Sig/Dieudonne Route PRN Reason Start Time Stop Time Status Last Admin Dose Admin Acetaminophen (TYLenol 325MG TAB) 650 mg Q4H PRN PO MILD PAIN (1-3) 05/19/25 18:00 06/18/25 17:59 Acetaminophen (TYLenol 325MG TAB) 650 mg Q6H PRN PO TEMPERATURE GREATER THAN 101.5 05/19/25 18:00 06/18/25 17:59 Al Hydroxide/Mg Hydroxide (MAALox PLUS 30ML) 30 ml Q6H PRN PO INDIGESTION 05/19/25 18:00 06/18/25 17:59 05/20/25 23:33 30 ML Albuterol Sulfate (Proventil 0.083% 2.5mg/3ml) 2.5 mg Q4HPRN PRN IH wheezing 05/19/25 18:00 06/18/25 17:59 Ceftriaxone Sodium (ROCEphine 1G INJ) 1 gm Q24H IVPB 05/20/25 16:30 05/30/25 16:29 05/20/25 16:10 1 GM Dextrose (D50w) 50 ml AD PRN IV HYPOGLYCEMIA PROTOCOL 05/19/25 18:30 06/18/25 18:29 Diphenhydramine HCl (BENAdryl CAP) 25 mg Q4H PRN PO MILD ITCHING/RASH 05/19/25 18:00 06/18/25 17:59 Diphenhydramine HCl (BENAdryl INJ) 25 mg Q6H PRN IV SEVERE ITCHING/RASH 05/19/25 18:00 06/18/25 17:59 Glucagon (Glucagon 1mg Kit) 1 mg AD PRN IM HYPOGLYCEMIA PROTOCOL 05/19/25 18:30 06/18/25 18:29 Guaifenesin/ Dextromethorphan (RobiTUSSin DM 200/20MG 10ML) 10 ml Q4H PRN PO COUGH 05/19/25 18:00 06/18/25 17:59 Hydralazine HCl (APRESOLine 20MG INJ) 10 mg Q4H4 PRN IV For:SBP above 170;DBP above 90 05/19/25 18:00 06/18/25 17:59 Insulin Human Regular (humuLIN R 100 UNIT/ML 3ML) INSULIN SLIDING SCAL... ACHS SQ 05/19/25 21:00 06/18/25 20:59 Lactulose (Constulose 20gm/ 30ml Udcup) 20 gm BID PRN PO CONSTIPATION 05/19/25 18:00 06/18/25 17:59 Metoclopramide HCl (regLAN 10MG IV) 5 mg Q6H6 IVP 05/20/25 00:00 05/20/25 19:48 DC 05/20/25 17:26 5 MG Metoclopramide HCl (regLAN 10MG IV) 5 mg Q6H6 PRN IVP NAUSEA/VOMITING 05/20/25 20:00 06/19/25 00:00 Ondansetron HCl (zoFRAN 4MG INJ) 4 mg Q6H PRN IV NAUSEA/VOMITING 05/19/25 18:00 06/18/25 17:59 Pantoprazole Sodium (PROTonix 40MG INJ) 40 mg BID IVP 05/19/25 21:00 05/20/25 19:53 DC 05/20/25 10:27 40 MG Pantoprazole Sodium (PROTonix 40MG INJ) 40 mg DAILY IVP 05/21/25 09:00 06/18/25 20:59 05/21/25 10:39 40 MG Potassium Chloride 100 ml @ 50 mls/hr AD PRN IV POTASSIUM PROTOCOL 05/19/25 18:30 06/18/25 18:29 Potassium Chloride 100 ml @ 100 mls/hr AD PRN IV POTASSIUM PROTOCOL 05/19/25 18:30 06/18/25 18:29 Potassium Chloride (K-Dur/Klor-Con 20meq) 20 meq AD PRN PO POTASSIUM PROTOCOL 05/19/25 18:30 06/18/25 18:29 Potassium Chloride (KCl 10% Elixir 20meq/15ml) 20 meq AD PRN PO POTASSIUM PROTOCOL 05/19/25 18:30 06/18/25 18:29 Sodium Chloride 500 ml @ 0 mls/hr Q0M IV 05/19/25 16:00 06/18/25 15:59 05/19/25 17:07 500 MLS/HR Sodium Chloride 1,000 ml @ 100 mls/hr Q10H IV 05/19/25 18:30 06/18/25 18:29 05/21/25 10:39 100 MLS/HR Diagnostics / Radiology: [COPY/PASTE HERE IF NO REPORTS PLEASE DELETE SECTION] Assessment: [Hematemesis Concern for GI Bleed ] Plan: Case discussed with Dr. Velez Patient is to f/u at [facility] in 1 week for results and further evaluation. Please call and schedule appt. Continue with protonix 40mg IV Trend hemoglobin and transfuse as needed to goal HGB >7 Please call with questions, concerns, and change in clincal status and any overt GI bleed. Thank you for allowing us to be part of this patient's care. ] ELICIA HANCOCK BUDGET ENGINEER May 21, 2025 11:54
[2025-05-21] MEDS ORDERED: PANT40TA54 PO (12:55)
[2025-05-21] MEDS ORDERED: SUCR1TAB2 PO (13:10)
[2025-05-21] MEDS ORDERED: CEPH500C2 PO (13:11)
--- NOTE | 2025-05-21 13:15 | DS ---
DISCHARGE SUMMARY Date of Visit: May 21, 2025 Time of Visit: 13:15 ADMISSION DATE: May 19, 2025 at 17:26 DISCHARGE DATE: May 21, 2025 ATTENDED PHYSICIAN: Suly Dee MD DISCHARGE DIAGNOSIS: ACUTE UGI BLEED ACUTE ANEMIA DUE TO BLOOD LOSS ESOPHAGEAL ULCER ACUTE CYSTITIS Obstructive sleep apnea syndrome 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 Allergic rhinitis Chronic kidney disease stage 2 Body mass index 40+ - Severely obese Chronic cough ASSOCIATE PROFESSOR OF AUTOMATION(S): GI - DR TINAJERO RADIOLOGY: CR Chest, 1 View The lungs show no infiltrate or other acute finding. PLEURAL SPACES: No evidence of pleural effusion or pneumothorax. MEDIASTINUM: The cardiomediastinal silhouette is within normal limits. BONES: No acute osseous abnormality. IMPRESSION: No acute cardiopulmonary pathology is evident. ABD PEL W - CT ABDOMEN/PELVIS W/CONTRAST FINDINGS: LUNG BASES: The lung bases are clear. No pleural effusion. LIVER: The liver is enlarged, measuring 19 cm in craniocaudal span. No focal lesion. Mild fatty liver. GALLBLADDER AND BILE DUCTS: The gallbladder is within normal limits. No radio-opaque gallstones. No biliary ductal dilatation. PANCREAS: Unremarkable. SPLEEN: Unremarkable. ADRENAL GLANDS: Unremarkable. KIDNEYS, URETERS, AND BLADDER: Two right renal cysts, largest measuring 1.1 x 1.1 x 1.1 cm in the interpolar region. A left renal cyst in the interpolar region measuring 2.8 x 2.3 x 2.2 cm. No hydronephrosis or urinary calculi. The urinary bladder is incompletely distended, limiting wall assessment. Mild cystitis cannot be excluded in the appropriate clinical context. STOMACH AND BOWEL: Mild constipation. No obstruction or colitis. APPENDIX: No evidence of acute appendicitis. PERITONEUM: No free fluid. No free air. LYMPH NODES: No lymphadenopathy. REPRODUCTIVE: Unremarkable as visualized. VASCULATURE: No evidence of abdominal aortic aneurysm. BONES: Multilevel mild degenerative changes in the spine. No acute osseous abnormality. IMPRESSION: No acute process in the abdomen or pelvis. No obvious bowel wall thickening, inflammation, or cause of GI bleeding is evident at this time. Hepatomegaly with liver span measuring 19 cm. Bilateral renal cysts, largest measuring 2.8 cm in the interpolar region of the left kidney. Mild constipation. Incompletely distended urinary bladder, limiting wall evaluation. Mild cystitis cannot be excluded. PROCEDURES: EGD - LA GRADE A ESOPHAGITIS, ESOPHAGESL ULCER W/O BLEEDING, GASTRITIS, ERYTHEMA OF DUODENUM RECOMMENDATIONS : PPI BID X 2 WEEKS THEN DAILY REPEAT EGD IN 8 WEEKS, AVOIDS NSAIDS, ALCOHOL, ASA AND AWAIT PATHOLOGY HOSPITAL COURSE: THIS IS 54 YR OLD MAN WITH THE ABOVE PMH WHO PRESENTED WITH AN ACUTE UGI BLEED ASSOCIATED WITH ACUTE ANEMIA DUE TO BLOOD LOSS. HE WAS KEPT NPO, TREATED IV PROTONIX AND ANTI EMETICS PRN AND IVF HYDRATION. HE WAS EVALUATED BY GI AND HAD AN EGD AND FOUND TO HAVE AN ESOPHAGEAL ULCER. HE WAS CHANGED TO PO PPI AND HIS DIET AND ACTIVITY WERE ADVANCED WITHOUT DIFFICULTY. GI RECOMMENDATIONS : PPI BID X 2 WEEKS THEN DAILY REPEAT EGD IN 8 WEEKS, AVOIDS NSAIDS, ALCOHOL, ASA AND AWAIT PATHOLOGY. HE ALSO HAD ACUTE CYSTITIS WITH WAS TREATED WITH ANTIBIOTICS AND DID WELL WITH TREATMENT. ONCE STABLE HE WAS DISCHARGED HOME TO FOLLOW UP AN OUTPATIENT. DIET: HEART HEALTHY BLAND ACTIVITY: AT [facility] CONDITION: STABLE EQUIPMENT: NONE FOLLOW UP APPOINTMENT(S): DR DEE IN 2-5 DAYS DISPOSITION: HOME CODE STATUS: FULL MEDICATION RECONCILIATION : Home Medications were reconciled with hospital medications upon discharge and discussed with patient and/or responsible democrat. PROTONIX 40 MG PO BID X 2 WKS THEN DAILY SUCRALFATE 1 GM PO QID PRN DYSPEPSIA CEPHALEXIN 500 MG PO TID X 4 DAYS * Home Meds Active Scripts Cephalexin (Cephalexin) 500 Mg Capsule, 1 CAP PO TID for 4 Days, #12 CAP 0 Refills Prov:SULY DEE MD 05/21/25 Sucralfate (Sucralfate) 1 Gram Tablet, 1 TAB PO QID PRN for DYSPEPSIA for 14 Days, #56 TAB 0 Refills Prov:SULY DEE MD 05/21/25 Pantoprazole Sodium (Pantoprazole Sodium) 40 Mg Tablet., 1 TAB PO BID for 30 Days, #60 TAB 1 Refill Prov:SULY DEE MD 05/21/25 Pantoprazole Sodium (Pantoprazole Sodium) 40 Mg Tablet., 1 TAB PO DAILY for 30 Days, #30 TAB 0 Refills Prov:SULY DEE MD 05/19/25 Montelukast Sodium (Montelukast Sodium) 10 Mg Tablet, 1 TAB PO DAILY for 30 Days, #30 TAB 0 Refills Prov:SULY DEE MD 05/19/25 Metformin HCl (Metformin HCl) 500 Mg Tablet, 1 TAB PO DAILY for 30 Days, #60 TAB 0 Refills Prov:SULY DEE MD 05/19/25 Hydrochlorothiazide (Hydrochlorothiazide) 25 Mg Tablet, 1 TAB PO DAILY for 30 Days, #30 TAB 0 Refills Prov:SULY DEE MD 05/19/25 Dapagliflozin Propanediol (Farxiga) 10 Mg Tablet, 1 TAB PO DAILY for 30 Days, #30 TAB 0 Refills Prov:SLUY DEE MD 05/19/25 Albuterol Sulfate (Ventolin Hfa/Proventil Hfa/Proair Hfa) 90 Mcg Puff, 2 PUFF IH Q4HPRN PRN for wheezing for 30 Days, #18 GM 0 Refills Prov:SULY DEE MD 05/19/25 Reported Medications Dapagliflozin Propanediol (Farxiga) 10 Mg Tablet, 10 MG PO DAILY, TAB 05/20/25 Losartan Potassium (Losartan Potassium) 25 Mg Tablet, 1 TAB PO DAILY for 30 Days, #30 TAB 0 Refills 05/19/25 Discontinued Scripts Tirzepatide (Mounjaro) 2.5 Mg/0.5 Ml Pen.injctr, 2.5 MG SQ QWEEK, #1 EA Prov:SULY DEE MD 05/19/25 Losartan Potassium (Losartan Potassium) 50 Mg Tablet, 1 TAB PO DAILY for 30 Days, #30 TAB 0 Refills Prov:SULY DEE MD 05/19/25 SULY DEE MD May 21, 2025 13:15
--- NOTE | 2025-05-21 15:24 | NUR ---
DC IV REMOVED CATH INTACT DRESSING TO REMOVAL SITE [facility]MMANU[facility] WELL DC INSTRUCTIONS GIVEN VERBAL UNDERSTANDING ESCORTED OFF UNITVIA WC TO FRONT OF HOSPITAL STABLE COND,
== END 2025-05-21 16:25 | disposition home or self-care (01) | DRG 368 ==
LOC: EDH 15:00 → EDHIP 17:26 → 4BH 21:40
PROVIDERS: ADMIT Internal Medicine; ATTEND Internal Medicine
PROC: 0DB98ZX Excision of Duodenum, Via Natural or Artificial Opening Endoscopic, Diagnostic (ICD-10-PCS; principal; 2025-05-21)
PROC: 0DB78ZX Excision of Stomach, Pylorus, Via Natural or Artificial Opening Endoscopic, Diagnostic (ICD-10-PCS; 2025-05-21)
PROC: 0DB68ZX Excision of Stomach, Via Natural or Artificial Opening Endoscopic, Diagnostic (ICD-10-PCS; 2025-05-21)
DX: K20.91 Esophagitis, unspecified with bleeding (principal); K29.71 Gastritis, unspecified, with bleeding; D62 Acute posthemorrhagic anemia; N30.00 Acute cystitis without hematuria; Z68.41 Body mass index [BMI] 40.0-44.9, adult; J30.9 Allergic rhinitis, unspecified; K59.00 Constipation, unspecified; K31.89 Other diseases of stomach and duodenum; N28.1 Cyst of kidney, acquired; E11.40 Type 2 diabetes mellitus with diabetic neuropathy, unspecified; E11.22 Type 2 diabetes mellitus with diabetic chronic kidney disease; N18.2 Chronic kidney disease, stage 2 (mild); G47.33 Obstructive sleep apnea (adult) (pediatric); I12.9 Hypertensive chronic kidney disease with stage 1 through stage 4 chronic kidney disease, or unspecified chronic kidney disease; E66.01 Morbid (severe) obesity due to excess calories; N30.90 Cystitis, unspecified without hematuria; Z79.84 Long term (current) use of oral hypoglycemic drugs; Z79.899 Other long term (current) drug therapy
CPT/HCPCS: 36415; 43239; 71045; 74177; 80048; 80076; 82948; 83605; 83735; 84100; 85014; 85018; 85025; 85027; 85610; 85730; 86850; 86900; 86901; 88305; 88312; 96365; 96375; 99285; A4606; G0378; J0696; J2405; J2470; J2704; J2765; J7030; J7040; Q9967; A4215; A4222; A4223; A4620; A7002; J3490